=== PATIENT | female | born 1965 | race Caucasian/White ===

== ENCOUNTER 2020-11-29 14:24 | Outpatient (CLI) | payer BC | END 2020-11-29 14:25 | disposition home or self-care (01) | LOC: LABHHL 14:24 | PROVIDERS: ATTEND Otolaryngology Otology & Neurotology | DX: J33.1 Polypoid sinus degeneration (principal); J32.0 Chronic maxillary sinusitis | CPT/HCPCS: 88304; 88305; 88311 ==